=== PATIENT | female | born 1930 | race Caucasian/White ===

== ENCOUNTER 2018-10-21 19:05 | Emergency (ER) | payer MEDICARE, MEDICAID ==
[2018-10-21] MEDS: ONDANSETRON 4 MG INJ IV (20:41)
[2018-10-21] MEDS: SOD CHLORIDE 0.9% 500 ML IV (20:41)
[2018-10-21] MEDS: hydrALAzine 20 MG INJ IV (20:42)
[2018-10-21] MEDS: ACETAMINOPHEN 325 MG TAB PO (20:42)
[2018-10-21 21:15] LABS: ADD MAN DIFF? NO
[2018-10-21 21:19] LABS: WHITE BLOOD COUNT 9.8 10^3/ul (4.8-10.8)
[2018-10-21 21:19] LABS: BASOPHILS % 0.2 % (0.0-2.0); HEMATOCRIT 35.3 % (37.0-47.0); HEMOGLOBIN 11.5 g/dl (12.0-16.0); LYMPHOCYTES # 1.8 10^3/ul (0.8-2.9); LYMPHOCYTES % 18.5 % (15.0-51.0); MEAN CORPUSCULAR HEMOGLOBIN 30.7 pg (29.0-33.0); MEAN CORPUSCULAR HGB CONC 32.6 g/dl (32.0-37.0); MEAN CORPUSCULAR VOLUME 94.1 fl (82.0-101.0); MEAN PLATELET VOLUME 10.7 fl (7.4-10.4); MONOCYTE # 0.7 10^3/ul (0.3-0.9); MONOCYTES % 7.1 % (0.0-11.0); NEUTROPHIL # 7.2 10^3/ul (1.6-7.5); NEUTROPHILS % 73.9 % (39.0-77.0); PLATELET COUNT 365 10^3/UL (140-415); RED BLOOD COUNT 3.75 10^6/ul (4.20-5.40); RED CELL DISTRIBUTION WIDTH 13.1 % (11.5-14.5)
[2018-10-21 21:33] LABS: INR 0.89; PROTIME 12.1 Sec (11.9-14.9); PT RATIO 0.9
[2018-10-21 21:34] LABS: PARTIAL THROMBOPLASTIN TIME 29.3 Sec (23.0-35.0)
[2018-10-21 21:37] LABS: ANION GAP 12 (5-13); BLOOD UREA NITROGEN 26 mg/dl (7-20); CALCIUM 9.6 mg/dl (8.4-10.2); CARBON DIOXIDE 24 mmol/L (21-31); CHLORIDE 107 mmol/L (97-110); GLUCOSE 128 mg/dl (70-220); POTASSIUM 5.4 mmol/L (3.5-5.1); SODIUM 143 mmol/L (135-144)
[2018-10-21 21:51] LABS: TROPONIN-I < 0.012 ng/ml (0.000-0.120)
[2018-10-21] MEDS: MELOXICAM 15 MG TAB PO (22:42)
== END 2018-10-21 22:47 | disposition home or self-care (01) ==
LOC: E/R 19:05
DX: R51 Headache (principal); I10 Essential (primary) hypertension; Z85.118 Personal history of other malignant neoplasm of bronchus and lung; Z79.82 Long term (current) use of aspirin
CPT/HCPCS: 36415; 71045; 80048; 84484; 85025; 85610; 85730; 99285-25

== ENCOUNTER 2019-03-28 15:04 | Inpatient (IN) | payer MEDICARE, OTHER, MEDICAID ==
[2019-03-28 16:28] LABS: ADD MAN DIFF? NO
[2019-03-28 16:31] LABS: WHITE BLOOD COUNT 9.5 10^3/ul (4.8-10.8)
[2019-03-28 16:31] LABS: BASOPHIL # 0.1 10^3/ul (0.0-0.1); BASOPHILS % 0.7 % (0.0-2.0); EOSINOPHILS # 0.2 10^3/ul (0.0-0.5); HEMATOCRIT 31.5 % (37.0-47.0); HEMOGLOBIN 10.4 g/dl (12.0-16.0); LYMPHOCYTES # 2.2 10^3/ul (0.8-2.9); LYMPHOCYTES % 23.3 % (15.0-51.0); MEAN CORPUSCULAR HEMOGLOBIN 30.8 pg (29.0-33.0); MEAN CORPUSCULAR VOLUME 93.2 fl (82.0-101.0); MEAN PLATELET VOLUME 10.6 fl (7.4-10.4); MONOCYTE # 1.1 10^3/ul (0.3-0.9); MONOCYTES % 11.2 % (0.0-11.0); NEUTROPHIL # 5.9 10^3/ul (1.6-7.5); NEUTROPHILS % 62.1 % (39.0-77.0); PLATELET COUNT 349 10^3/UL (140-415); RED BLOOD COUNT 3.38 10^6/ul (4.20-5.40)
[2019-03-28 16:53] LABS: ALANINE AMINOTRANSFERASE 20 IU/L (13-69); ALBUMIN 3.9 g/dl (3.3-4.9); ALBUMIN/GLOBULIN RATIO 0.97; ALKALINE PHOSPHATASE 86 IU/L (42-121); ANION GAP 8 (5-13); ASPARTATE AMINO TRANSFERASE 27 IU/L (15-46); BILIRUBIN,INDIRECT 0.3 mg/dl (0-1.1); BILIRUBIN,TOTAL 0.3 mg/dl (0.2-1.3); BLOOD UREA NITROGEN 17 mg/dl (7-20); CALCIUM 9.1 mg/dl (8.4-10.2); CARBON DIOXIDE 27 mmol/L (21-31); CHLORIDE 103 mmol/L (97-110); CREATININE 1.06 mg/dl (0.44-1.00); GLUCOSE 127 mg/dl (70-220); SODIUM 138 mmol/L (135-144); TOTAL PROTEIN 7.9 g/dl (6.1-8.1)
[2019-03-28 17:01] LABS: INR 0.92; PROTIME 12.5 Sec (11.9-14.9)
[2019-03-28 17:02] LABS: B-TYPE NATRIURETIC PEPTIDE 283 PG/ML (0-450); PARTIAL THROMBOPLASTIN TIME 28.6 Sec (23.0-35.0)
[2019-03-28] MEDS: CEFTRIAXONE 1 GM/50 ML (PMX) 50 ML IVPB (18:09)
[2019-03-28] MEDS: ALBUTEROL 0.083% (NEB) 2.5 MG/3 ML AMP HHN ×2 (18:15→23:07)
[2019-03-28] MEDS: IPRATROPIUM (NEB) 0.5 MG/2.5 ML AMP INH (18:15)
[2019-03-28] MEDS ORDERED: ONDANSETRON 4 MG INJ IV ×2 (18:30→21:30)
[2019-03-28] MEDS ORDERED: ACETAMINOPHEN 325 MG TAB PO ×2 (18:30→21:30)
[2019-03-28] MEDS: AZITHROMYCIN 500MG/NS (PMX) 250 ML IV (19:25)
[2019-03-28] MEDS: SALINE 0.65% 45 ML NAS SPRAY NASAL ×2 (22:55→22:56)
[2019-03-29 05:14] LABS: ADD MAN DIFF? NO
[2019-03-29 05:17] LABS: BASOPHIL # 0.1 10^3/ul (0.0-0.1); BASOPHILS % 0.9 % (0.0-2.0); EOSINOPHILS # 0.2 10^3/ul (0.0-0.5); EOSINOPHILS % 1.9 % (0.0-7.0); HEMATOCRIT 30.3 % (37.0-47.0); LYMPHOCYTES # 2.6 10^3/ul (0.8-2.9); LYMPHOCYTES % 29.7 % (15.0-51.0); MEAN CORPUSCULAR HEMOGLOBIN 30.7 pg (29.0-33.0); MEAN CORPUSCULAR VOLUME 92.9 fl (82.0-101.0); MEAN PLATELET VOLUME 10.6 fl (7.4-10.4); MONOCYTE # 1.2 10^3/ul (0.3-0.9); MONOCYTES % 13.7 % (0.0-11.0); NEUTROPHIL # 4.6 10^3/ul (1.6-7.5); NEUTROPHILS % 52.8 % (39.0-77.0); PLATELET COUNT 327 10^3/UL (140-415); RED BLOOD COUNT 3.26 10^6/ul (4.20-5.40)
[2019-03-29 05:17] LABS: WHITE BLOOD COUNT 8.7 10^3/ul (4.8-10.8)
[2019-03-29 06:12] LABS: ALANINE AMINOTRANSFERASE 21 IU/L (13-69); ALBUMIN 3.6 g/dl (3.3-4.9); ALBUMIN/GLOBULIN RATIO 1.05; ALKALINE PHOSPHATASE 73 IU/L (42-121); ANION GAP 7 (5-13); ASPARTATE AMINO TRANSFERASE 25 IU/L (15-46); BILIRUBIN,INDIRECT 0.3 mg/dl (0-1.1); BILIRUBIN,TOTAL 0.3 mg/dl (0.2-1.3); BLOOD UREA NITROGEN 14 mg/dl (7-20); CALCIUM 8.8 mg/dl (8.4-10.2); CARBON DIOXIDE 26 mmol/L (21-31); CHLORIDE 106 mmol/L (97-110); CREATININE 0.91 mg/dl (0.44-1.00); GLUCOSE 115 mg/dl (70-220); PHOSPHORUS 3.8 mg/dl (2.5-4.9); POTASSIUM 3.8 mmol/L (3.5-5.1); SODIUM 139 mmol/L (135-144)
[2019-03-29] MEDS: CEFTRIAXONE 1 GM/50 ML (PMX) 50 ML IVPB (17:19)
[2019-03-29] MEDS: AZITHROMYCIN 500 MG in SOD CHLORIDE 0.9% 250 ML IVPB (18:25)
[2019-03-30 05:56] LABS: ADD MAN DIFF? NO
[2019-03-30 06:01] LABS: BASOPHIL # 0.1 10^3/ul (0.0-0.1); BASOPHILS % 0.9 % (0.0-2.0); EOSINOPHILS # 0.2 10^3/ul (0.0-0.5); EOSINOPHILS % 2.9 % (0.0-7.0); HEMATOCRIT 30.7 % (37.0-47.0); HEMOGLOBIN 10.1 g/dl (12.0-16.0); LYMPHOCYTES # 2.7 10^3/ul (0.8-2.9); LYMPHOCYTES % 38.9 % (15.0-51.0); MEAN CORPUSCULAR HEMOGLOBIN 30.6 pg (29.0-33.0); MEAN CORPUSCULAR HGB CONC 32.9 g/dl (32.0-37.0); MEAN PLATELET VOLUME 10.9 fl (7.4-10.4); MONOCYTE # 0.9 10^3/ul (0.3-0.9); MONOCYTES % 12.5 % (0.0-11.0); NEUTROPHILS % 43.8 % (39.0-77.0); PLATELET COUNT 349 10^3/UL (140-415); RED CELL DISTRIBUTION WIDTH 12.1 % (11.5-14.5)
[2019-03-30 06:01] LABS: WHITE BLOOD COUNT 6.8 10^3/ul (4.8-10.8)
[2019-03-30 06:43] LABS: ANION GAP 8 (5-13); BLOOD UREA NITROGEN 14 mg/dl (7-20); CALCIUM 8.9 mg/dl (8.4-10.2); CARBON DIOXIDE 26 mmol/L (21-31); CHLORIDE 106 mmol/L (97-110); CREATININE 0.87 mg/dl (0.44-1.00); GLUCOSE 123 mg/dl (70-220); PHOSPHORUS 3.9 mg/dl (2.5-4.9); SODIUM 140 mmol/L (135-144)
[2019-03-30] MEDS: ENOXAPARIN 40 MG/0.4 ML SYG SC (08:20)
== END 2019-03-30 15:00 | disposition home health service (06) | DRG 202 ==
LOC: E/R 15:04 → 2NE 18:04
DX: J20.9 Acute bronchitis, unspecified (principal); J96.01 Acute respiratory failure with hypoxia; N17.9 Acute kidney failure, unspecified; I10 Essential (primary) hypertension; Z85.118 Personal history of other malignant neoplasm of bronchus and lung; F41.9 Anxiety disorder, unspecified; K74.60 Unspecified cirrhosis of liver; D63.8 Anemia in other chronic diseases classified elsewhere
CPT/HCPCS: 71045; 71250; 80048; 80053; 83735; 83880; 84100; 85025; 85610; 85730; 87040-91; 94664; 99285-25

== ENCOUNTER 2019-04-12 09:04 | Emergency (ER) | payer MEDICARE, OTHER ==
[2019-04-12] MEDS: ONDANSETRON 4 MG INJ IV ×2 (09:32→14:09)
[2019-04-12] MEDS: FAMOTIDINE 20 MG INJ IV (09:33)
[2019-04-12] MEDS: SOD CHLORIDE 0.9% 1,000 ML IV (09:33)
[2019-04-12 09:49] LABS: ADD MAN DIFF? NO
[2019-04-12 09:54] LABS: BASOPHIL # 0.1 10^3/ul (0.0-0.1); EOSINOPHILS # 0.1 10^3/ul (0.0-0.5); HEMATOCRIT 32.8 % (37.0-47.0); HEMOGLOBIN 10.5 g/dl (12.0-16.0); LYMPHOCYTES % 37.1 % (15.0-51.0); MEAN CORPUSCULAR HEMOGLOBIN 30.3 pg (29.0-33.0); MEAN CORPUSCULAR VOLUME 94.8 fl (82.0-101.0); MEAN PLATELET VOLUME 10.8 fl (7.4-10.4); MONOCYTE # 0.9 10^3/ul (0.3-0.9); MONOCYTES % 17.1 % (0.0-11.0); NEUTROPHIL # 2.3 10^3/ul (1.6-7.5); NEUTROPHILS % 43.6 % (39.0-77.0); PLATELET COUNT 347 10^3/UL (140-415); RED BLOOD COUNT 3.46 10^6/ul (4.20-5.40); RED CELL DISTRIBUTION WIDTH 12.6 % (11.5-14.5)
[2019-04-12 09:54] LABS: WHITE BLOOD COUNT 5.3 10^3/ul (4.8-10.8)
[2019-04-12 10:10] LABS: ALANINE AMINOTRANSFERASE 23 IU/L (13-69); ALBUMIN 3.8 g/dl (3.3-4.9); ALBUMIN/GLOBULIN RATIO 1.05; ALKALINE PHOSPHATASE 64 IU/L (42-121); AMYLASE 83 U/L (11-123); ANION GAP 8 (5-13); ASPARTATE AMINO TRANSFERASE 26 IU/L (15-46); BILIRUBIN,INDIRECT 0.4 mg/dl (0-1.1); BILIRUBIN,TOTAL 0.4 mg/dl (0.2-1.3); BLOOD UREA NITROGEN 19 mg/dl (7-20); CALCIUM 9.8 mg/dl (8.4-10.2); CARBON DIOXIDE 26 mmol/L (21-31); CHLORIDE 107 mmol/L (97-110); CREATININE 0.82 mg/dl (0.44-1.00); GLUCOSE 109 mg/dl (70-220); LIPASE 86 U/L (23-300); POTASSIUM 5.5 mmol/L (3.5-5.1); SODIUM 141 mmol/L (135-144); TOTAL PROTEIN 7.4 g/dl (6.1-8.1)
[2019-04-12 10:22] LABS: INR 0.89; PROTIME 12.2 Sec (11.9-14.9); TROPONIN-I < 0.012 ng/ml (0.000-0.120)
[2019-04-12 10:27] LABS: PARTIAL THROMBOPLASTIN TIME 31.4 Sec (23.0-35.0)
[2019-04-12 12:34] LABS: ADD UMIC NO; UR ASCORBIC ACID NEGATIVE (NEGATIVE); UR BILIRUBIN (Dip) NEGATIVE (NEGATIVE); UR BLOOD (Dip) NEGATIVE (NEGATIVE); UR CLARITY CLEAR (CLEAR); UR COLOR STRAW (YELLOW); UR GLUCOSE (Dip) NEGATIVE (NEGATIVE); UR KETONES (Dip) NEGATIVE (NEGATIVE); UR LEUKOCYTE ESTERASE (Dip) NEGATIVE Leu/ul (NEGATIVE); UR NITRITE (Dip) NEGATIVE (NEGATIVE); UR SPECIFIC GRAVITY (Dip) 1.004 (1.003-1.030); UR TOTAL PROTEIN (Dip) NEGATIVE (NEGATIVE); UR UROBILINOGEN (Dip) NEGATIVE (NEGATIVE)
== END 2019-04-12 14:25 | disposition home or self-care (01) ==
LOC: E/R 09:04
DX: R11.2 Nausea with vomiting, unspecified (principal); I10 Essential (primary) hypertension; Z85.118 Personal history of other malignant neoplasm of bronchus and lung
CPT/HCPCS: 80053; 81003; 82150; 83690; 84484; 85025; 85610; 85730; 93005; 96361; 96374; 96375; 99284-25

== ENCOUNTER 2019-04-27 07:38 | Emergency (ER) | payer MEDICARE, OTHER ==
[2019-04-27 08:26] LABS: ADD MAN DIFF? NO
[2019-04-27 08:29] LABS: WHITE BLOOD COUNT 5.3 10^3/ul (4.8-10.8)
[2019-04-27 08:29] LABS: BASOPHIL # 0.1 10^3/ul (0.0-0.1); BASOPHILS % 0.9 % (0.0-2.0); EOSINOPHILS # 0.1 10^3/ul (0.0-0.5); EOSINOPHILS % 1.9 % (0.0-7.0); HEMOGLOBIN 11.4 g/dl (12.0-16.0); LYMPHOCYTES # 2.2 10^3/ul (0.8-2.9); LYMPHOCYTES % 40.7 % (15.0-51.0); MEAN CORPUSCULAR HEMOGLOBIN 30.9 pg (29.0-33.0); MEAN CORPUSCULAR HGB CONC 33.5 g/dl (32.0-37.0); MEAN CORPUSCULAR VOLUME 92.1 fl (82.0-101.0); MEAN PLATELET VOLUME 10.9 fl (7.4-10.4); MONOCYTE # 0.7 10^3/ul (0.3-0.9); MONOCYTES % 12.2 % (0.0-11.0); NEUTROPHIL # 2.4 10^3/ul (1.6-7.5); NEUTROPHILS % 44.1 % (39.0-77.0); PLATELET COUNT 268 10^3/UL (140-415); RED BLOOD COUNT 3.69 10^6/ul (4.20-5.40); RED CELL DISTRIBUTION WIDTH 12.7 % (11.5-14.5)
[2019-04-27 08:58] LABS: ANION GAP 9 (5-13); BLOOD UREA NITROGEN 17 mg/dl (7-20); CALCIUM 9.4 mg/dl (8.4-10.2); CARBON DIOXIDE 26 mmol/L (21-31); CHLORIDE 105 mmol/L (97-110); GLUCOSE 111 mg/dl (70-220); POTASSIUM 4.7 mmol/L (3.5-5.1); SODIUM 140 mmol/L (135-144)
[2019-04-27 09:09] LABS: TROPONIN-I < 0.012 ng/ml (0.000-0.120)
[2019-04-27] MEDS: ALPRAZOLAM 0.25 MG TAB PO (10:14)
== END 2019-04-27 15:20 | disposition home or self-care (01) ==
LOC: E/R 07:38
DX: R55 Syncope and collapse (principal); I10 Essential (primary) hypertension; Z85.118 Personal history of other malignant neoplasm of bronchus and lung
CPT/HCPCS: 36415; 71045; 80048; 82962; 84484; 85025; 93005; 99285-25

== ENCOUNTER 2019-05-02 09:07 | Emergency (ER) | payer MEDICARE, OTHER ==
[2019-05-02] MEDS: ONDANSETRON 4 MG INJ IV (09:41)
[2019-05-02 09:57] LABS: ADD MAN DIFF? NO
[2019-05-02 10:01] LABS: BASOPHIL # 0.1 10^3/ul (0.0-0.1); BASOPHILS % 1.2 % (0.0-2.0); EOSINOPHILS # 0.1 10^3/ul (0.0-0.5); EOSINOPHILS % 2.2 % (0.0-7.0); HEMATOCRIT 34.1 % (37.0-47.0); HEMOGLOBIN 11.4 g/dl (12.0-16.0); LYMPHOCYTES # 1.7 10^3/ul (0.8-2.9); LYMPHOCYTES % 34.2 % (15.0-51.0); MEAN CORPUSCULAR HEMOGLOBIN 30.8 pg (29.0-33.0); MEAN CORPUSCULAR HGB CONC 33.4 g/dl (32.0-37.0); MEAN CORPUSCULAR VOLUME 92.2 fl (82.0-101.0); MEAN PLATELET VOLUME 10.9 fl (7.4-10.4); MONOCYTE # 0.6 10^3/ul (0.3-0.9); MONOCYTES % 11.7 % (0.0-11.0); NEUTROPHIL # 2.5 10^3/ul (1.6-7.5); NEUTROPHILS % 50.5 % (39.0-77.0); PLATELET COUNT 273 10^3/UL (140-415); RED CELL DISTRIBUTION WIDTH 12.5 % (11.5-14.5)
[2019-05-02 10:26] LABS: ALANINE AMINOTRANSFERASE 15 IU/L (13-69); ALBUMIN 4.1 g/dl (3.3-4.9); ALBUMIN/GLOBULIN RATIO 1.02; ALKALINE PHOSPHATASE 65 IU/L (42-121); ANION GAP 7 (5-13); ASPARTATE AMINO TRANSFERASE 28 IU/L (15-46); BILIRUBIN,INDIRECT 0.7 mg/dl (0-1.1); BILIRUBIN,TOTAL 0.7 mg/dl (0.2-1.3); BLOOD UREA NITROGEN 14 mg/dl (7-20); CALCIUM 8.7 mg/dl (8.4-10.2); CARBON DIOXIDE 26 mmol/L (21-31); CHLORIDE 108 mmol/L (97-110); CREATININE 0.79 mg/dl (0.44-1.00); GLUCOSE 109 mg/dl (70-220); POTASSIUM 4.6 mmol/L (3.5-5.1); SODIUM 141 mmol/L (135-144); TOTAL PROTEIN 8.1 g/dl (6.1-8.1)
[2019-05-02 10:39] LABS: TROPONIN-I < 0.012 ng/ml (0.000-0.120)
[2019-05-02 15:27] LABS: CREATINE KINASE 49 IU/L (23-200)
[2019-05-02 15:40] LABS: CK INDEX 1.1; CK-MB 0.53 ng/ml (0.0-2.4); TROPONIN-I 0.018 ng/ml (0.000-0.120)
== END 2019-05-02 16:30 | disposition home or self-care (01) ==
LOC: E/R 09:07
DX: R42 Dizziness and giddiness (principal); I10 Essential (primary) hypertension
CPT/HCPCS: 70450; 71045; 80053; 82550; 82553; 84484; 85025; 93005; 96374; 99285-25

== ENCOUNTER 2019-06-05 08:10 | Observation (INO) | payer MEDICARE, OTHER ==
[2019-06-05 09:11] LABS: ADD MAN DIFF? NO
[2019-06-05 09:13] LABS: WHITE BLOOD COUNT 6.3 10^3/ul (4.8-10.8)
[2019-06-05 09:13] LABS: BASOPHILS % 0.6 % (0.0-2.0); EOSINOPHILS # 0.1 10^3/ul (0.0-0.5); EOSINOPHILS % 1.1 % (0.0-7.0); HEMATOCRIT 36.5 % (37.0-47.0); HEMOGLOBIN 11.8 g/dl (12.0-16.0); LYMPHOCYTES # 2.2 10^3/ul (0.8-2.9); LYMPHOCYTES % 34.2 % (15.0-51.0); MEAN CORPUSCULAR HEMOGLOBIN 30.8 pg (29.0-33.0); MEAN CORPUSCULAR HGB CONC 32.3 g/dl (32.0-37.0); MEAN CORPUSCULAR VOLUME 95.3 fl (82.0-101.0); MEAN PLATELET VOLUME 10.8 fl (7.4-10.4); MONOCYTE # 0.8 10^3/ul (0.3-0.9); MONOCYTES % 12.2 % (0.0-11.0); NEUTROPHIL # 3.3 10^3/ul (1.6-7.5); NEUTROPHILS % 51.6 % (39.0-77.0); PLATELET COUNT 272 10^3/UL (140-415); RED BLOOD COUNT 3.83 10^6/ul (4.20-5.40); RED CELL DISTRIBUTION WIDTH 12.4 % (11.5-14.5)
[2019-06-05] MEDS: SOD CHLORIDE 0.9% 500 ML IV (09:13)
[2019-06-05 09:35] LABS: ALANINE AMINOTRANSFERASE 29 IU/L (13-69); ALBUMIN 4.3 g/dl (3.3-4.9); ALBUMIN/GLOBULIN RATIO 1.07; ALKALINE PHOSPHATASE 73 IU/L (42-121); ANION GAP 6 (5-13); ASPARTATE AMINO TRANSFERASE 36 IU/L (15-46); BILIRUBIN,INDIRECT 0.5 mg/dl (0-1.1); BILIRUBIN,TOTAL 0.5 mg/dl (0.2-1.3); BLOOD UREA NITROGEN 18 mg/dl (7-20); CALCIUM 9.9 mg/dl (8.4-10.2); CARBON DIOXIDE 32 mmol/L (21-31); CHLORIDE 104 mmol/L (97-110); CREATININE 0.86 mg/dl (0.44-1.00); GLUCOSE 108 mg/dl (70-220); SODIUM 142 mmol/L (135-144); TOTAL PROTEIN 8.3 g/dl (6.1-8.1)
[2019-06-05 09:46] LABS: TROPONIN-I < 0.012 ng/ml (0.000-0.120)
[2019-06-05] MEDS: LACTATED RINGER'S 1,000 ML IV (10:51)
[2019-06-05] MEDS ORDERED: ONDANSETRON 4 MG INJ IV ×2 (14:30→15:30)
[2019-06-05] MEDS ORDERED: ACETAMINOPHEN 325 MG TAB PO (14:30)
[2019-06-05] MEDS ORDERED: ALPRAZOLAM 0.5 MG TAB PO ×2 (15:00→23:00)
[2019-06-05] MEDS ORDERED: NACL 0.9% 3 ML SYG IV (15:30)
[2019-06-05] MEDS: SOD CHLORIDE 0.9% 1,000 ML IV (16:54)
[2019-06-05] MEDS: hydrALAzine 20 MG INJ IV (17:42)
[2019-06-05] MEDS: FAMOTIDINE 20 MG TAB PO (21:07)
[2019-06-05] MEDS: ACETAMINOPHEN 325 MG TAB PO (21:07)
[2019-06-05] MEDS: URSODIOL 300 MG CAP PO (22:25)
[2019-06-06] MEDS: SOD CHLORIDE 0.9% 1,000 ML IV ×2 (04:42→08:46)
[2019-06-06 05:33] LABS: ADD MAN DIFF? NO
[2019-06-06 05:40] LABS: WHITE BLOOD COUNT 5.4 10^3/ul (4.8-10.8)
[2019-06-06 05:40] LABS: BASOPHILS % 0.7 % (0.0-2.0); EOSINOPHILS # 0.1 10^3/ul (0.0-0.5); EOSINOPHILS % 2.2 % (0.0-7.0); HEMATOCRIT 32.9 % (37.0-47.0); HEMOGLOBIN 10.7 g/dl (12.0-16.0); LYMPHOCYTES # 2.4 10^3/ul (0.8-2.9); LYMPHOCYTES % 44.4 % (15.0-51.0); MEAN CORPUSCULAR HGB CONC 32.5 g/dl (32.0-37.0); MEAN CORPUSCULAR VOLUME 95.4 fl (82.0-101.0); MEAN PLATELET VOLUME 11.1 fl (7.4-10.4); MONOCYTE # 0.7 10^3/ul (0.3-0.9); MONOCYTES % 12.6 % (0.0-11.0); NEUTROPHIL # 2.2 10^3/ul (1.6-7.5); NEUTROPHILS % 39.9 % (39.0-77.0); PLATELET COUNT 264 10^3/UL (140-415); RED BLOOD COUNT 3.45 10^6/ul (4.20-5.40); RED CELL DISTRIBUTION WIDTH 12.6 % (11.5-14.5)
[2019-06-06] MEDS: MAGNESIUM HYDROXIDE 30ML CUP PO (06:09)
[2019-06-06] MEDS: DOCUSATE SODIUM 100 MG CAP PO (06:09)
[2019-06-06 06:23] LABS: ANION GAP 3 (5-13); BLOOD UREA NITROGEN 14 mg/dl (7-20); CARBON DIOXIDE 30 mmol/L (21-31); CHLORIDE 107 mmol/L (97-110); CREATININE 0.75 mg/dl (0.44-1.00); GLUCOSE 103 mg/dl (70-220); MAGNESIUM 1.9 mg/dl (1.7-2.5); POTASSIUM 4.5 mmol/L (3.5-5.1); SODIUM 140 mmol/L (135-144)
[2019-06-06] MEDS: ALPRAZOLAM 0.5 MG TAB PO ×2 (06:55→19:29)
[2019-06-06] MEDS: FAMOTIDINE 20 MG TAB PO ×2 (08:45→20:24)
[2019-06-06] MEDS: URSODIOL 300 MG CAP PO ×3 (09:00→20:24)
[2019-06-06] MEDS: ACETAMINOPHEN 325 MG TAB PO (13:16)
[2019-06-06] MEDS ORDERED: SALINE 0.65% 45 ML NAS SPRAY NASAL (14:00)
[2019-06-06] MEDS: BISACODYL (EC) 5 MG TAB PO (16:27)
[2019-06-07] MEDS: FAMOTIDINE 20 MG TAB PO (08:43)
[2019-06-07] MEDS: URSODIOL 300 MG CAP PO ×2 (08:44→12:14)
[2019-06-07] MEDS: LACTOBACILLUS RHAMNOSUS CAP PO (12:14)
[2019-06-07] MEDS: ALPRAZOLAM 0.5 MG TAB PO (18:17)
== END 2019-06-07 18:20 | disposition home health service (06) ==
LOC: E/R 08:10 → MS1 14:28
DX: R42 Dizziness and giddiness (principal); R55 Syncope and collapse; D63.8 Anemia in other chronic diseases classified elsewhere; I10 Essential (primary) hypertension; F41.9 Anxiety disorder, unspecified; Z85.118 Personal history of other malignant neoplasm of bronchus and lung; R09.81 Nasal congestion; K59.00 Constipation, unspecified
CPT/HCPCS: 70450; 80048; 80053; 83735; 84484; 85025; 93005; 96360; 97161; 99285-25